=== PATIENT | male | born 1955 | race Two or more races ===

== ENCOUNTER 2018-08-10 05:10 | Day surgery (SDC) | payer OTHER ==
[~2018-08-10] VITALS: Ht 165.1 cm; Wt 72.6 kg
[~2018-08-10 05:10] MED LIST: OMEPRAZOLE40 MG PO; SYNTHROID88 MCG PO
== END 2018-08-10 15:15 | disposition home or self-care (01) ==
LOC: CIR.AMB 05:10 → EDSTATUS 12:30 → SURH 12:30 → CIR.AMB 15:15
DX: K80.10 Calculus of gallbladder with chronic cholecystitis without obstruction (principal)

== ENCOUNTER 2018-12-12 09:31 | Day surgery (SDC) | payer OTHER | END 2018-12-12 15:10 | disposition home or self-care (01) | LOC: AMB-ENDOS 09:31 | DX: K57.30 Diverticulosis of large intestine without perforation or abscess without bleeding (principal) ==